=== PATIENT | female | born 1960 | race Hispanic/Latino ===

== ENCOUNTER 2017-04-29 02:58 | Observation (INO) | payer BC ==
[2017-04-29] MEDS ORDERED: Sodium Chloride 0.9% 1,000 ML IV STA (03:23)
--- NOTE | 2017-04-29 03:26 | ED PDOC ---
HPI: Back Time Seen by Provider: 04/29/17 03:16 Chief Complaint (Nursing): Back Pain Chief Complaint (Provider): right back pain History Per: Patient History/Exam Limitations: no limitations Onset/Duration Of Symptoms: Hrs Current Symptoms Are (Timing): Still Present Quality Of Discomfort: "Pain" Additional History Per: Patient Additional Complaint(s): 57 y/o female presents with right lower back pain x 6 hours. Associated vomiting x 1. Denies fever, chest pain, changes in bowel movements, dysuria, hematuria. Past Medical History Reviewed: Historical Data, Nursing Documentation, Vital Signs Vital Signs: Last Vital Signs Temp 98.0 F 04/29/17 03:12 Pulse 69 04/29/17 03:12 Resp 16 04/29/17 03:12 BP 140/108 H 04/29/17 03:12 Pulse Ox 99 04/29/17 03:12 - Medical History PMH: No Chronic Diseases - Surgical History Surgical History: Appendectomy - Family History Family History: States: No Known Family Hx - Home Medications Home Medications: Ambulatory Orders Medication Instructions Recorded Cyclobenzaprine [Cyclobenzaprine 10 mg PO BID PRN #10 tab 04/29/17 HCl] Naproxen [Naprosyn] 500 mg PO Q12 PRN #20 tablet 04/29/17 oxyCODONE/Acetaminophen [Percocet 1 ea PO Q6 PRN #10 tab 04/29/17 5/325 mg Tab] - Allergies Allergies/Adverse Reactions: Allergies Allergy/AdvReac Type Severity Reaction Status Date / Time No Known Allergies Allergy Verified 04/29/17 03:14 Review of Systems ROS Statement: Except As Marked, All Systems Reviewed And Found Negative Musculoskeletal: Positive for: Back Pain Physical Exam - Reviewed Nursing Documentation Reviewed: Yes Vital Signs Reviewed: Yes - Physical Exam Appears: Positive for: Well, Non-toxic, Uncomfortable Head Exam: Positive for: ATRAUMATIC, NORMAL INSPECTION, NORMOCEPHALIC Skin: Positive for: Normal Color Eye Exam: Positive for: Normal appearance ENT: Positive for: Normal ENT Inspection Cardiovascular/Chest: Positive for: Regular Rate, Rhythm Respiratory: Positive for: Normal Breath Sounds Gastrointestinal/Abdominal: Positive for: Normal Exam, Bowel Sounds, Soft. Negative for: Tenderness Back: Positive for: Muscle Spasm (right lspine paraspinals). Negative for: L CVA Tenderness, R CVA Tenderness, Vertebral Tenderness, Decreased ROM Extremity: Positive for: Normal ROM Neurologic/Psych: Positive for: Alert, Oriented - Laboratory Results Result Diagrams: 04/29/17 03:36 04/29/17 03:36 Urine POC: Negative Urine dip results: Positive for: Blood. Negative for: Leukocyte Esterase, Nitrate, Ketones - ECG O2 Sat by Pulse Oximetry: 99 - Progress ED Course And Treament: labs, urine, IV fluids, IV toradol, CT renal protocol EXAM: CT Abdomen and Pelvis Without Intravenous Contrast CLINICAL HISTORY: 57 years old, female; Pain; Abdominal pain; Generalized; Additional info: Right back/flank pain TECHNIQUE: Axial computed tomography images of the abdomen and pelvis without intravenous contrast. All CT scans at this facility use one or more dose reduction techniques, viz.: automated exposure control; ma/kV adjustment per patient size (including targeted exams where dose is matched to indication; i.e. head); or iterative reconstruction technique. Coronal and sagittal reformatted images were created and reviewed. COMPARISON: No relevant prior studies available. FINDINGS: Lower thorax: No acute findings. ABDOMEN: Liver: Too small to characterize lesion. Gallbladder and bile ducts: No calcified stones. No ductal dilation. Pancreas: Unremarkable. No ductal dilation. Spleen: No splenomegaly. Adrenals: No mass. Kidneys and ureters: No renal calculi. No hydronephrosis. Stomach and bowel: No definite mural thickening. No obstruction. Appendix: No findings to suggest acute appendicitis. PELVIS: Bladder: Unremarkable. No stones. Reproductive: Unremarkable as visualized. ABDOMEN and PELVIS: Intraperitoneal space: No significant fluid collection. No free air. Bones/joints: Degenerative changes of spine. No acute fracture. Soft tissues: Unremarkable. Vasculature: Unremarkable. No aneurysm. Lymph nodes: No pathologically enlarged lymph nodes. IMPRESSION: 1. No CT evidence of urolithiasis. 2. Incidental/non-acute findings are described above. On re-eval, patient notes little improvement of pain after IV toradol, IV morphine given. Flexeril PO given. Disposition - Clinical Impression Clinical Impression: Back pain - Patient ED Disposition Is Patient to be Admitted: No - Disposition Disposition: Transfer of Care Disposition Time: 06:00 Condition: STABLE Patient Signed Over To: Lux Acosta Handoff Comments: pending re-eval
[2017-04-29 03:40] LABS: BASO # 0.1 K/uL (0.0-0.2); BASO % 0.7 % (0.0-2.0); EOS # 0.3 K/uL (0.0-0.7); EOS % 3.2 % (0.0-4.0); HEMATOCRIT 41.3 % (34.0-47.0); LYMPH # 2.5 K/uL (1.0-4.3); LYMPH % 25.2 % (20.0-40.0); MEAN CELL VOLUME 98.2 fl (81.0-99.0); MEAN CORPUSCULAR HEMOGLOBIN 33.3 pg (27.0-31.0); MEAN CORPUSCULAR HGB CONC 33.9 g/dL (33.0-37.0); MEAN PLATELET VOLUME 9.4 fl (7.2-11.7); MONO # 0.9 K/uL (0.0-0.8); MONO % 9.3 % (0.0-10.0); NEUT % 61.6 % (50.0-75.0); NRBC % 0.1 % (0.0-0.0); RED CELL DISTRIBUTION WIDTH 13.3 % (11.5-14.5); WHITE BLOOD COUNT 9.8 K/uL (4.8-10.8)
[2017-04-29 03:44] LABS: RBC URINE < 1 /hpf (0-3); URINE BILIRUBIN NEGATIVE (NEGATIVE); URINE BLOOD SMALL (NEGATIVE); URINE COLOR STRAW (YELLOW); URINE GLUCOSE (UA) NEG (Normal); URINE KETONE NEGATIVE (NEGATIVE); URINE LEUKOCYTE ESTERASE NEG Leu/uL (Negative); URINE PROTEIN NEGATIVE (NEGATIVE); URINE UROBILINOGEN 0.2-1.0 mg/dL (0.2-1.0); WBC URINE 1 /hpf (0-5)
[2017-04-29 03:49] LABS: ALB/GLOB RATIO 1.7 (1.0-2.1); ALKALINE PHOSPHATASE 61 U/L (38-126); ALT/SGPT 29 U/L (9-52); AST/SGOT 25 U/L (14-36); BILIRUBIN,TOTAL 0.8 mg/dl (0.2-1.3); BLOOD UREA NITROGEN 18 mg/dl (7-17); CALCIUM 10.4 mg/dL (8.4-10.2); CARBON DIOXIDE 24 mmol/L (22-30); CHLORIDE 106 mmol/L (98-107); GFR AFRICAN-AMERICAN > 60; GLUCOSE,RANDOM 121 mg/dL (65-105); POTASSIUM 4.2 MMOL/L (3.6-5.0); SODIUM 141 mmol/l (132-148); TOTAL PROTEIN 7.2 G/DL (6.3-8.2)
--- NOTE | 2017-04-29 05:17 | CT ---
EXAM: CT Abdomen and Pelvis Without Intravenous Contrast CLINICAL HISTORY: 57 years old, female; Pain; Abdominal pain; Generalized; Additional info: Right back/flank pain TECHNIQUE: Axial computed tomography images of the abdomen and pelvis without intravenous contrast. All CT scans at this facility use one or more dose reduction techniques, viz.: automated exposure control; ma/kV adjustment per patient size (including targeted exams where dose is matched to indication; i.e. head); or iterative reconstruction technique. Coronal and sagittal reformatted images were created and reviewed. COMPARISON: No relevant prior studies available. FINDINGS: Lower thorax: No acute findings. ABDOMEN: Liver: Too small to characterize lesion. Gallbladder and bile ducts: No calcified stones. No ductal dilation. Pancreas: Unremarkable. No ductal dilation. Spleen: No splenomegaly. Adrenals: No mass. Kidneys and ureters: No renal calculi. No hydronephrosis. Stomach and bowel: No definite mural thickening. No obstruction. Appendix: No findings to suggest acute appendicitis. PELVIS: Bladder: Unremarkable. No stones. Reproductive: Unremarkable as visualized. ABDOMEN and PELVIS: Intraperitoneal space: No significant fluid collection. No free air. Bones/joints: Degenerative changes of spine. No acute fracture. Soft tissues: Unremarkable. Vasculature: Unremarkable. No aneurysm. Lymph nodes: No pathologically enlarged lymph nodes. IMPRESSION: 1. No CT evidence of urolithiasis. 2. Incidental/non-acute findings are described above.
[2017-04-29] MEDS ORDERED: diaZEpam 10 mg/2 ml Inj ONE (06:15)
[2017-04-29] MEDS ORDERED: diaZEpam 10 mg/2 ml Inj IVP ONE (06:16)
--- NOTE | 2017-04-29 06:19 | ED PDOC ---
- Laboratory Results Result Diagrams: 04/29/17 03:36 04/29/17 03:36 Urine POC: Negative - ECG O2 Sat by Pulse Oximetry: 99 Pulse Ox Interpretation: Normal Medical Decision Making Medical Decision Making: Receiving Sign Out: Pt signed out to me by Umm Boswell PA-C, pending re-evaluation. Scribe Attestation: Documented by Renita Paltt acting as a scribe for Lux Acosta MD Provider Scribe Attestation: All medical record entries made by the Scribe were at my direction and personally dictated by me. I have reviewed the chart and agree that the record accurately reflects my personal performance of the history, physical exam, medical decision making, and the department course for this patient. I have also personally directed, reviewed, and agree with the discharge instructions and disposition. Disposition - Clinical Impression Clinical Impression: Back pain - POA Present On Arrival: None - Disposition Disposition: Transfer of Care Disposition Time: 05:00 Condition: STABLE Prescriptions: Cyclobenzaprine [Cyclobenzaprine HCl] 10 mg PO BID PRN #10 tab PRN Reason: Muscle Spasm Naproxen [Naprosyn] 500 mg PO Q12 PRN #20 tablet PRN Reason: Pain, Moderate (4-7) Instructions: Acute Low Back Pain (ED) Forms: [email or web address] ([place]) Patient Signed Over To: Nohelia Smith Handoff Comments: Pending Lumbar spine MRI ED OBSERVATION Date of observation admission: 04/29/17 Time of observation admission: 05:00 - Observation admission statement Patient is being placed in observation because:: Pt w/ lower back pain - Goals of Observation Goals of observation are:: Pt pending further workup - Progress Note Progress Note: 04/29/17 06:00 Pt signed out to me by Umm Boswell PA-C pending reassessment. 04/29/17 06:16 Pt reports persistent pain. -- Morphine 4mg IV ordered -- Valium 6mg IVP -- MRI Lumbar Spine 04/29/17 07:00 Patient to be signed out to Dr. Smith pending MRI Lumbar Spine.
--- NOTE | 2017-04-29 07:14 | ED PDOC ---
- Laboratory Results Result Diagrams: 04/29/17 03:36 04/29/17 03:36 Urine POC: Negative - ECG O2 Sat by Pulse Oximetry: 99 (RA) Pulse Ox Interpretation: Normal Medical Decision Making Medical Decision Making: Time: 7:00 --Patient has been endorsed to me by Dr. Lux Acosta, pending MRI LS Spine and final disposition *See ED-OBS tab for further documentation Scribe Attestation: Documented by Marychuy Sanchez, acting as a scribe for Nohelia Smith MD Provider Scribe Attestation: All medical record entries made by the Scribe were at my direction and personally dictated by me. I have reviewed the chart and agree that the record accurately reflects my personal performance of the history, physical exam, medical decision making, and the department course for this patient. I have also personally directed, reviewed, and agree with the discharge instructions and disposition. Disposition - Clinical Impression Clinical Impression: Back pain, Bulging disc - POA Present On Arrival: None - Disposition Disposition: Routine/Home Disposition Time: 05:00 Condition: STABLE ED OBSERVATION Discharge: Yes Date of observation admission: 04/29/17 Time of observation admission: 05:00 - Observation admission statement Patient is being placed in observation because:: lower back pain - Goals of Observation Goals of observation are:: time extensive work up - Progress Note Progress Note: 04/29/17 Time: 7:00 --Patient resting comfortably, in no acute distress. Vital signs stable. Time: 8:30 --Patient continues to rest. Vital signs stable. Time: 8:48 MRI lumbar spine History: Low back pain. Comparison: None available. Technique: Multi-echo multiplanar sequences were performed through the lumbar spine without the use of intravenous contrast. 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 Prominent endplate reactive changes with some mild discogenic edema seen at the L4-5 disc space. Additional milder discogenic edema seen at the posterior aspect of the L1-2 disc space. Conus medullaris ends at approximately the L1 vertebral body level. Heterogeneity of the visualized marrow with patchy decreased T1 signal suggestive for hematopoietic marrow reconversion. Annular fissures at the L1-2, L3-4, L4-5, and L5-S1 levels. T12-L1: No significant disc herniation, spinal canal stenosis, or neural foraminal narrowing. L1-2: Small broad-based posterior disc bulge contacting the anterior thecal sac. Mild ligamentum flavum and facet hypertrophy. No significant spinal canal stenosis. Mild bilateral neural foraminal narrowing. L2-3: Small broad-based posterior disc bulge contacting the anterior thecal sac. Mild ligamentum flavum and facet hypertrophy. No significant spinal canal stenosis. Mild bilateral neural foraminal narrowing. L3-4: Small broad-based posterior disc bulge contacting the anterior thecal sac. Mild ligamentum flavum and facet hypertrophy. No significant spinal canal stenosis or neural foraminal narrowing. L4-5: Small broad-based posterior disc bulge contacting the anterior thecal sac. Moderate ligamentum flavum and facet hypertrophy. Mild spinal canal stenosis. Moderate bilateral neural foraminal narrowing. L5-S1: Small to moderate broad-based posterior disc bulge contacting the anterior thecal sac. Mild ligamentum flavum and facet hypertrophy. No significant spinal canal stenosis. Moderate bilateral neural foraminal narrowing. Impression: Multilevel posterior disc bulges as described most prominent at the L1-2, L4-5, and L5-S1 levels. Acute discogenic edema centered at the L4-5 disc space. Additional findings as above. Time: 10:00 --Patient resting comfortably, in no acute distress. Vital signs stable. Time: 11:30 --Patient continues to rest. Vital signs stable. 04/29/17 12:34 Patient is now awake after resting. She reports pain is improved. She is ambulating around the ED. She is neurologically intact, with no weakness, numbness or tinging and is urinating normally without issues. She was made aware of MRI and given copies. She reports that she has PMD and ortho follow-up and will follow-up. She was given detailed return instructions.
--- NOTE | 2017-04-29 08:49 | MRI ---
MRI lumbar spine History: Low back pain. Comparison: None available. Technique: Multi-echo multiplanar sequences were performed through the lumbar spine without the use of intravenous contrast. 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 Prominent endplate reactive changes with some mild discogenic edema seen at the L4-5 disc space. Additional milder discogenic edema seen at the posterior aspect of the L1-2 disc space. Conus medullaris ends at approximately the L1 vertebral body level. Heterogeneity of the visualized marrow with patchy decreased T1 signal suggestive for hematopoietic marrow reconversion. Annular fissures at the L1-2, L3-4, L4-5, and L5-S1 levels. T12-L1: No significant disc herniation, spinal canal stenosis, or neural foraminal narrowing. L1-2: Small broad-based posterior disc bulge contacting the anterior thecal sac. Mild ligamentum flavum and facet hypertrophy. No significant spinal canal stenosis. Mild bilateral neural foraminal narrowing. L2-3: Small broad-based posterior disc bulge contacting the anterior thecal sac. Mild ligamentum flavum and facet hypertrophy. No significant spinal canal stenosis. Mild bilateral neural foraminal narrowing. L3-4: Small broad-based posterior disc bulge contacting the anterior thecal sac. Mild ligamentum flavum and facet hypertrophy. No significant spinal canal stenosis or neural foraminal narrowing. L4-5: Small broad-based posterior disc bulge contacting the anterior thecal sac. Moderate ligamentum flavum and facet hypertrophy. Mild spinal canal stenosis. Moderate bilateral neural foraminal narrowing. L5-S1: Small to moderate broad-based posterior disc bulge contacting the anterior thecal sac. Mild ligamentum flavum and facet hypertrophy. No significant spinal canal stenosis. Moderate bilateral neural foraminal narrowing. Impression: Multilevel posterior disc bulges as described most prominent at the L1-2, L4-5, and L5-S1 levels. Acute discogenic edema centered at the L4-5 disc space. Additional findings as above.
[2017-04-29 12:25] VITALS: BP 118/72; RESP 20; TEMP 98.1
[2017-04-29 12:35] VITALS: O2SAT 99
[2017-04-29 12:49] VITALS: PULSE 72
== END 2017-04-29 13:53 | disposition home or self-care (01) ==
LOC: H.ER 02:58 → H.EROBSV 05:00
PROVIDERS: ADMIT Emergency Medicine; ATTEND Emergency Medicine
DX: M54.5 Low back pain (principal)
CPT/HCPCS: 72148; 74176; 80053; 81003; 85025; 87086; 96361; 96374; 96375; 96376; 99284; G0378; J1885; J2270; J2405; J3360; J7040